=== PATIENT | female | born 1995 | race Caucasian/White ===

== ENCOUNTER 2017-09-19 00:04 | Emergency (ER) | payer BC ==
[~2017-09-19] VITALS: Ht 180.3 cm; Wt 108.0 kg
[2017-09-19 00:12] VITALS: Ht 180.3 cm; Wt 108.0 kg
[2017-09-19 03:15] VITALS: BP 125/71
== END 2017-09-19 03:15 | disposition home or self-care (01) ==
LOC: ED 00:04
DX: R07.89 Other chest pain (principal)
CPT/HCPCS: Q0092